=== PATIENT | female | born 1965 ===

== ENCOUNTER 2016-09-09 11:51 | Emergency (ER) | payer OTHER ==
[2016-09-09 11:56] VITALS: BP 129/88; PULSE 89; RESP 16; TEMP 98.1; O2SAT 99; BMI 32.1
--- NOTE | 2016-09-09 12:49 | ED PDOC ---
Upper Extremity Pain/Injury Time Seen by Provider: 09/09/16 12:38 Chief Complaint (Nursing): Upper Extremity Problem/Injury Chief Complaint (Provider): tendon injury History Per: Patient History/Exam Limitations: no limitations Additional Complaint(s): 50yo f in ED for eval of wrist injury sustained today at work while liting a heavy object -states she noted a pull to left wrist near thumb and immediate inflammation and pain. since the the pain has subsided and the inflammation decreased. pain only noted with certain movts. no hx of DM. no numbness or weakness. right hand dominant. Past Medical History Reviewed: Historical Data, Nursing Documentation, Vital Signs Vital Signs: Last Vital Signs Temp 98.1 F 09/09/16 11:55 Pulse 89 09/09/16 11:55 Resp 16 09/09/16 11:55 BP 129/88 09/09/16 11:55 Pulse Ox 99 09/09/16 11:55 - Medical History PMH: HTN - Family History Family History: States: No Known Family Hx - Allergies Allergies/Adverse Reactions: Allergies Allergy/AdvReac Type Severity Reaction Status Date / Time No Known Allergies Allergy Verified 09/09/16 11:55 Review of Systems ROS Statement: Except As Marked, All Systems Reviewed And Found Negative Musculoskeletal: Positive for: Hand Pain Physical Exam - Reviewed Nursing Documentation Reviewed: Yes Vital Signs Reviewed: Yes - Physical Exam Appears: Positive for: Well, Non-toxic, No Acute Distress Head Exam: Positive for: ATRAUMATIC, NORMAL INSPECTION, NORMOCEPHALIC Skin: Positive for: Normal Color, Warm, DRY Neck: Positive for: Painless ROM Extremity: Positive for: Other (left wrist: (-) Dequevrians test (-) phalens test ) Neurologic/Psych: Positive for: Alert, Oriented - ECG O2 Sat by Pulse Oximetry: 99 Medical Decision Making Medical Decision Making: no indication at this time for Xray-pt will need a Thumb spica splint and f/u with hand surgery. pt understands and agrees with plan. Disposition - Clinical Impression Clinical Impression: Tendonitis - Patient ED Disposition Is Patient to be Admitted: No Counseled Patient/Family Regarding: Diagnosis, Need For Followup - Disposition Referrals: Dragan Levine MD [Medical Doctor] - Disposition Time: 12:51 Condition: STABLE Instructions: Tendinitis (ED) Forms: [facility] ED School/Work Excuse
[2016-09-09] MEDS ORDERED: Naproxen 500 MG TAB PO STA (12:52)
== END 2016-09-09 13:00 | disposition home or self-care (01) ==
LOC: SUPCPDRO 11:51 → H.ER 11:51
DX: M77.9 Enthesopathy, unspecified (principal); I10 Essential (primary) hypertension

== ENCOUNTER 2017-06-17 04:23 | Emergency (ER) | payer OTHER ==
[2017-06-17 04:23] VITALS: BMI 32.1
[2017-06-17 04:50] VITALS: RESP 16; TEMP 97.8
[2017-06-17] MEDS ORDERED: HYDROmorphone 0.5 mg/0.5 ml ISec IVP STA (05:20)
[2017-06-17] MEDS ORDERED: Sodium Chloride 0.9% 500 ML IV STA (05:22)
--- NOTE | 2017-06-17 05:43 | ED PDOC ---
HPI: Abdomen Chief Complaint (Provider): Abdominal pain History Per: Patient History/Exam Limitations: no limitations Onset/Duration Of Symptoms: Hrs (4) Current Symptoms Are (Timing): Still Present Severity: Severe Pain Scale Rating Of: 10 Location Of Pain/Discomfort: Diffuse Quality Of Discomfort: Pressure Associated Symptoms: Nausea Exacerbating Factors: Supine Alleviating Factors: None Abnormal Vaginal Bleeding: No Last Menstral Period: 06/13/17 <Corinna Kay - Last Filed: 06/17/17 06:50> <Radha Knapp - Last Filed: 06/17/17 07:16> Time Seen by Provider: 06/17/17 04:47 Chief Complaint (Nursing): Abdominal Pain Additional Complaint(s): Bree Crews is a 51 yo F with PMH hypertension and depression, presents to the ED today, 06/17/17 with abdominal pain x4 hrs. Describes the pain as pressure that is all over her abdomen- radiating to the back and sides, 10/10, constant. Pain is exacerbated by lying down. She has had 3 similar episodes of pain in the last week, and all started when she laid down to go to sleep; she does not think there is association with food. Pain is accompanied by nausea, and she has vomited x1 after trying to drink water at home, could not keep it down. PMH: htn, depression Past Surg hx: none Social hx: smokes 1ppd for more than 20 yrs, denies alcohol or drug use LMP: 06/13/17 Allergies: none Medications: htn medication (pt unsure of name), and Paxil PMD: Dr. Jae Prakash (Corinna Kay) Supervising Attending Note - Supervising Attending Note The Documented history was done by the: Physician Occupational Health And Safety Adviser, Attending Physician The documented physical exam was done by the: Physician Occupational Health And Safety Adviser, Attending Physician - Attestation: I have personally seen and examined this patient.: Yes I have fully participated in the care of the patient.: Yes I have reviewed all pertinent clinical information: Yes <Radha Knapp - Last Filed: 06/17/17 07:16> Past Medical History - Medical History PMH: Depression, HTN - Surgical History Surgical History: No Surg Hx - Family History Family History: States: Unknown Family Hx - Social History SMOKER/PACKS PER DAY:: 1 Alcohol: None Drugs: Denies <Corinna Kay - Last Filed: 06/17/17 06:50> <Radha Knapp - Last Filed: 06/17/17 07:16> Vital Signs: Last Vital Signs Temp 97.8 F 06/17/17 04:47 Pulse 70 06/17/17 04:47 Resp 16 06/17/17 04:47 BP 158/86 H 06/17/17 04:47 Pulse Ox 99 06/17/17 06:52 - Allergies Allergies/Adverse Reactions: Allergies Allergy/AdvReac Type Severity Reaction Status Date / Time No Known Allergies Allergy Verified 09/09/16 11:55 Review of Systems Constitutional: Negative for: Fever, Chills Eyes: Negative for: Vision Change Cardiovascular: Negative for: Chest Pain, Palpitations Respiratory: Negative for: Cough Gastrointestinal: Positive for: Nausea, Vomiting, Abdominal Pain. Negative for : Diarrhea Genitourinary Female: Negative for: Dysuria, Frequency Neurological: Negative for: Weakness, Numbness <Corinna Kay - Last Filed: 06/17/17 06:50> Physical Exam - Physical Exam Appears: Positive for: In Acute Distress Skin: Positive for: Normal Color, Warm Eye Exam: Positive for: Normal appearance ENT: Positive for: Pharynx Is (clear). Negative for: Pharyngeal Erythema Cardiovascular/Chest: Positive for: Regular Rate, Rhythm. Negative for: Murmur Respiratory: Positive for: Normal Breath Sounds. Negative for: Respiratory Distress Gastrointestinal/Abdominal: Positive for: Bowel Sounds, Soft, Tenderness ( diffuse tenderness, possible +Tejeda's sign) Back: Positive for: Normal Inspection Extremity: Positive for: Normal ROM. Negative for: Calf Tenderness, Deformity Neurologic/Psych: Positive for: Alert, Oriented <Corinna Kay - Last Filed: 06/17/17 06:50> - Laboratory Results Result Diagrams: 06/17/17 05:47 06/17/17 05:47 - ECG O2 Sat by Pulse Oximetry: 99 <Corinna Kay - Last Filed: 06/17/17 06:50> - Laboratory Results Result Diagrams: 06/17/17 05:47 06/17/17 05:47 <Radha Knapp - Last Filed: 06/17/17 07:16> Medical Decision Making <Corinna Kay - Last Filed: 06/17/17 06:50> <Radha Knapp - Last Filed: 06/17/17 07:16> Medical Decision Makin CMP Lactic acid CBC PT/INR/PTT EKG Abd and Pelvis CT,IV and PO contrast Lipase Urine dip Urine preg Dilaudid 0.5 mg x1 500 ml NS @ 500 ml/hr Zofran 4mg IVP Re-eval after pain and antinausea medication 0635 Lipase wnl AST/ALT wnl EKG normal sinus rhythm pt states dilaudid made her dizzy; didn't alleviate pain toradol 15 IVP bentyl [address] pending (Corinna Kay) Disposition - Patient ED Disposition Is Patient to be Admitted: Transfer of Care - Disposition Disposition Time: 06:50 Patient Signed Over To: Radha Knapp Handoff Comments: Pt seen/discussed with Dr. Knapp <Corinna Kay - Last Filed: 06/17/17 06:50> - Disposition Disposition: Transfer of Care Patient Signed Over To: Bree Silva Handoff Comments: Pending ER workup, reassessment and final ER disposition <Radha Knapp - Last Filed: 06/17/17 07:16> - Clinical Impression Clinical Impression: Abdominal pain - Disposition Condition: FAIR
[2017-06-17 05:50] LABS: BASO # 0.1 K/uL (0.0-0.2); BASO % 0.8 % (0.0-2.0); EOS # 0.1 K/uL (0.0-0.7); EOS % 0.7 % (0.0-4.0); HEMOGLOBIN 14.4 g/dL (12.0-16.0); LYMPH # 3.6 K/uL (1.0-4.3); LYMPH % 29.5 % (20.0-40.0); MEAN CELL VOLUME 90.2 fl (81.0-99.0); MEAN CORPUSCULAR HEMOGLOBIN 29.3 pg (27.0-31.0); MEAN CORPUSCULAR HGB CONC 32.5 g/dL (33.0-37.0); MEAN PLATELET VOLUME 8.6 fl (7.2-11.7); MONO # 1.2 K/uL (0.0-0.8); MONO % 9.6 % (0.0-10.0); NEUT # 7.2 K/uL (1.8-7.0); NEUT % 59.4 % (50.0-75.0); NRBC % 0.1 % (0.0-0.0); RBC 4.92 Mil/uL (3.80-5.20); RED CELL DISTRIBUTION WIDTH 14.2 % (11.5-14.5); WHITE BLOOD COUNT 12.1 K/uL (4.8-10.8)
[2017-06-17] MEDS ORDERED: HYDROmorphone 0.5 mg/0.5 ml ISec ONE (05:51)
[2017-06-17] MEDS ORDERED: Iohexol 240 (50 ml) ONE (05:52)
[2017-06-17 06:08] LABS: ALB/GLOB RATIO 1.3 (1.0-2.1); ALBUMIN 4.2 g/dL (3.5-5.0); ALT/SGPT 30 U/L (9-52); AST/SGOT 22 U/L (14-36); BLOOD UREA NITROGEN 15 mg/dl (7-17); CALCIUM 9.2 mg/dL (8.4-10.2); GFR AFRICAN-AMERICAN > 60; GFR NON-AFRICAN AMERICAN > 60; LIPASE 106 U/L (23-300)
[2017-06-17 06:19] LABS: INR 0.9 (0.9-1.2); PARTIAL THROMBOPLASTIN TIME 29.9 Seconds (25.6-37.1)
[2017-06-17] MEDS ORDERED: Potassium Chloride 20 mEq ER Tab PO STA (08:18)
[2017-06-17] MEDS ORDERED: Potassium Chloride 20 mEq ER Tab PO ONE (09:08)
[2017-06-17] MEDS ORDERED: Iohexol 300 100 ML IJ ONE (09:34)
[2017-06-17] MEDS ORDERED: Sodium Chloride 0.9% 50 ML IV ONE (09:34)
--- NOTE | 2017-06-17 10:28 | CT ---
PROCEDURE: CT Abdomen and Pelvis with contrast HISTORY: abd pain COMPARISON: Abdomen and pelvis CT with contrast 04/02/2007. TECHNIQUE: Following oral and intravenous contrast administration, a CT examination of the abdomen and pelvis performed from the domes of the diaphragms to the symphysis pubis with reformatted datasets provided not only axial but also sagittal and coronal series. Contrast dose: Omnipaque 300, 95 cc Radiation dose: Total exam DLP = 822.68 mGy-cm. This CT exam was performed using one or more of the following dose reduction techniques: Automated exposure control, adjustment of the mA and/or kV according to patient size, and/or use of iterative reconstruction technique. FINDINGS: LOWER THORAX: Unremarkable. LIVER: Unremarkable. No gross lesion or ductal dilatation. GALLBLADDER AND BILE DUCTS: The gallbladder appears mildly distended with borderline mural thickening. The appearance is not significantly changed in the interval. No radiodense choledocholithiasis related. Extrahepatic biliary tree appears normal caliber as imaged. PANCREAS: Unremarkable. No gross lesion or ductal dilatation. SPLEEN: Unremarkable. ADRENALS: Unremarkable. No mass. KIDNEYS AND URETERS: Unremarkable. No hydronephrosis. No solid mass. VASCULATURE: Unremarkable. No aortic aneurysm. BOWEL: Stomach is collapsed. No bowel obstruction is appreciated throughout. The sigmoid colon is collapsed limiting evaluation of the wall. Element of limited sigmoid segmental colitis is not completely excluded. APPENDIX: Normal appendix. PERITONEUM: Unremarkable. No free fluid. No free air. LYMPH NODES: Unremarkable. No enlarged lymph nodes. BLADDER: Unremarkable. REPRODUCTIVE: Unremarkable. BONES: No acute fracture. OTHER FINDINGS: None. IMPRESSION: Collapsed sigmoid segment is identified limiting evaluation of the wall. An element segmental colitis is difficult to exclude involving the sigmoid colon with remaining large bowel grossly nonfocal in appearance. Otherwise, no additional potential acute findings are seen in the abdomen and pelvis.
--- NOTE | 2017-06-17 11:21 | ED PDOC ---
- Laboratory Results Result Diagrams: 06/17/17 05:47 06/17/17 05:47 - ECG O2 Sat by Pulse Oximetry: 98 (RA) Pulse Ox Interpretation: Normal - Progress Re-evaluation Time: 11:09 Condition: Improved Medical Decision Making Medical Decision Making: Time: 7:00 Patient is endorsed to me by Dr. Radha Knapp at this time. Pending CT scan and reevaluation. Time: 10:26 CT ABDOMEN AND PELVIS: FINDINGS: LOWER THORAX: Unremarkable. LIVER: Unremarkable. No gross lesion or ductal dilatation. GALLBLADDER AND BILE DUCTS: The gallbladder appears mildly distended with borderline mural thickening. The appearance is not significantly changed in the interval. No radiodense choledocholithiasis related. Extrahepatic biliary tree appears normal caliber as imaged. PANCREAS: Unremarkable. No gross lesion or ductal dilatation. SPLEEN: Unremarkable. ADRENALS: Unremarkable. No mass. KIDNEYS AND URETERS: Unremarkable. No hydronephrosis. No solid mass. VASCULATURE: Unremarkable. No aortic aneurysm. BOWEL: Stomach is collapsed. No bowel obstruction is appreciated throughout. The sigmoid colon is collapsed limiting evaluation of the wall. Element of limited sigmoid segmental colitis is not completely excluded. APPENDIX: Normal appendix. PERITONEUM: Unremarkable. No free fluid. No free air. LYMPH NODES: Unremarkable. No enlarged lymph nodes. BLADDER: Unremarkable. REPRODUCTIVE: Unremarkable. BONES: No acute fracture. OTHER FINDINGS: None. IMPRESSION: Collapsed sigmoid segment is identified limiting evaluation of the wall. An element segmental colitis is difficult to exclude involving the sigmoid colon with remaining large bowel grossly nonfocal in appearance. Otherwise, no additional potential acute findings are seen in the abdomen and pelvis. Time: 11:09 On reevaluation, patient reports she feels better. Abdomen reexamined with no tenderness or distension. Patient had one episode of non-bloody diarrhea in the ER. Stable for discharge home. Patient provided with prescriptions for Bentyl and Cipro, and advised to follow up with PMD in 2-3 days. Scribe Attestation: Documented by Delicia Patel, acting as a scribe for Bree Silva MD Provider Scribe Attestation: All medical record entries made by the Scribe were at my direction and personally dictated by me. I have reviewed the chart and agree that the record accurately reflects my personal performance of the history, physical exam, medical decision making, and the department course for this patient. I have also personally directed, reviewed, and agree with the discharge instructions and disposition Disposition Counseled Patient/Family Regarding: Studies Performed, Diagnosis, Need For Followup, Rx Given - Clinical Impression Clinical Impression: Abdominal pain, Colitis - POA Present On Arrival: None - Disposition Disposition: Routine/Home Disposition Time: 11:20 Condition: FAIR Additional Instructions: FOLLOW-UP WITH PMD WITHIN 2 DAYS FOR REEVALUATION. Prescriptions: Ciprofloxacin [Cipro] 500 mg PO BID #9 tab Dicyclomine [Bentyl] 20 mg PO QID PRN #10 tab PRN Reason: Pain, Moderate (4-7) Instructions: Colitis (ED) Forms: [facility] (Italian)
[2017-06-17 12:27] VITALS: BP 123/84; PULSE 72; O2SAT 100
--- NOTE | 2017-06-17 18:24 | CARD ---
APPROVED REPORT EKG Measurement Heart [id number] ND [id number] <Conclusion> Normal sinus rhythm Normal ECG
== END 2017-06-17 12:24 | disposition home or self-care (01) ==
LOC: H.ER 04:23
DX: K52.9 Noninfective gastroenteritis and colitis, unspecified (principal); F32.9 Major depressive disorder, single episode, unspecified; I10 Essential (primary) hypertension
CPT/HCPCS: 74177; 80053; 81025; 83605; 83690; 85025; 85610; 85730; 93005; 96361; 96374; 96375; 99284; J1170; J1885; J2405; J7040; Q9967

== ENCOUNTER 2017-07-11 00:24 | Inpatient (IN) | payer OTHER ==
[2017-07-11 00:24] VITALS: BMI 32.1
[2017-07-11] MEDS ORDERED: Sodium Chloride 0.9% 1,000 ML IV STA (01:44)
[2017-07-11] MEDS ORDERED: Lactated Ringer's 1,000 ML IV SCH ×2 (01:45→05:00)
[2017-07-11 02:09] LABS: BASO # 0.1 K/uL (0.0-0.2); BASO % 0.6 % (0.0-2.0); EOS # 0.1 K/uL (0.0-0.7); HEMOGLOBIN 14.6 g/dL (12.0-16.0); LYMPH # 1.7 K/uL (1.0-4.3); LYMPH % 19.9 % (20.0-40.0); MEAN CELL VOLUME 90.6 fl (81.0-99.0); MEAN CORPUSCULAR HEMOGLOBIN 30.2 pg (27.0-31.0); MEAN CORPUSCULAR HGB CONC 33.3 g/dL (33.0-37.0); MEAN PLATELET VOLUME 8.8 fl (7.2-11.7); MONO # 0.7 K/uL (0.0-0.8); MONO % 8.2 % (0.0-10.0); NEUT # 5.9 K/uL (1.8-7.0); NEUT % 70.3 % (50.0-75.0); RBC 4.85 Mil/uL (3.80-5.20); RED CELL DISTRIBUTION WIDTH 14.4 % (11.5-14.5); WHITE BLOOD COUNT 8.4 K/uL (4.8-10.8)
[2017-07-11 02:26] LABS: ALB/GLOB RATIO 1.4 (1.0-2.1); ALBUMIN 4.2 g/dL (3.5-5.0); ALT/SGPT 169 U/L (9-52); AST/SGOT 166 U/L (14-36); BLOOD UREA NITROGEN 9 mg/dl (7-17); CALCIUM 9.4 mg/dL (8.4-10.2); GFR AFRICAN-AMERICAN > 60; GFR NON-AFRICAN AMERICAN > 60; LIPASE 42 U/L (23-300)
[2017-07-11] MEDS ORDERED: Iohexol 240 (50 ml) PO ONE (02:35)
[2017-07-11] MEDS ORDERED: Morphine 4 MG/ML VIAL IVP STA ×2 (02:35→07:34)
[2017-07-11] MEDS ORDERED: Morphine 4 MG/ML VIAL ONE ×3 (02:36→07:27)
--- NOTE | 2017-07-11 03:02 | ED PDOC ---
HPI: Abdomen Time Seen by Provider: 07/11/17 00:56 Chief Complaint (Nursing): Abdominal Pain Chief Complaint (Provider): Abdominal Pain History Per: Patient History/Exam Limitations: no limitations Onset/Duration Of Symptoms: Days (21 days ago) Current Symptoms Are (Timing): Still Present Additional Complaint(s): 51 yo female with a history of recent cholecystectomy, 21 days ago, hypertension , and depression, presents to the ED complaining of abdominal pain, onset of 21 days ago. Patient reports that the pain has been constant since the surgery, and today she experienced 2 episodes of vomiting. She states that the pain is somewhat of an acidic sensation and resides in the middle of the abdomen and radiates upward towards the chest. She denies any urinary symptoms and also states that she has been unable to take her prescribed percocet because of the vomiting. Past Medical History Reviewed: Historical Data, Nursing Documentation, Vital Signs Vital Signs: Last Vital Signs Temp 98.1 F 07/11/17 04:52 Pulse 75 07/11/17 04:52 Resp 16 07/11/17 04:52 BP 108/63 07/11/17 04:52 Pulse Ox 95 07/11/17 04:52 - Medical History PMH: Depression, HTN - Surgical History Surgical History: Cholecystectomy - Family History Family History: States: Unknown Family Hx - Social History Current smoker - smoking cessation education provided: Yes (heavy) Alcohol: None Drugs: Denies - Home Medications Home Medications: Ambulatory Orders Medication Instructions Recorded Ciprofloxacin [Cipro] 500 mg PO BID #9 tab 06/17/17 Dicyclomine [Bentyl] 20 mg PO QID PRN #10 tab 06/17/17 - Allergies Allergies/Adverse Reactions: Allergies Allergy/AdvReac Type Severity Reaction Status Date / Time No Known Allergies Allergy Verified 07/11/17 00:25 Review of Systems ROS Statement: Except As Marked, All Systems Reviewed And Found Negative Gastrointestinal: Positive for: Vomiting, Abdominal Pain (in the middle radiating upward towards chest) Genitourinary Female: Negative for: Dysuria, Frequency, Incontinence, Hematuria Physical Exam - Reviewed Nursing Documentation Reviewed: Yes Vital Signs Reviewed: Yes - Physical Exam Appears: Positive for: Well, Non-toxic, No Acute Distress Head Exam: Positive for: ATRAUMATIC, NORMAL INSPECTION, NORMOCEPHALIC Skin: Positive for: Normal Color, Warm, DRY Eye Exam: Positive for: EOMI, Normal appearance, PERRL ENT: Positive for: Normal ENT Inspection Neck: Positive for: Normal, Painless ROM Cardiovascular/Chest: Positive for: Regular Rate, Rhythm. Negative for: Murmur Respiratory: Positive for: Normal Breath Sounds. Negative for: Respiratory Distress Gastrointestinal/Abdominal: Positive for: Soft, Tenderness (epigastric tenderness, surgical sights look clean and well healed) Back: Positive for: Normal Inspection Extremity: Positive for: Normal ROM. Negative for: Pedal Edema, Deformity Neurologic/Psych: Positive for: Alert, Oriented. Negative for: Motor/Sensory Deficits - Laboratory Results Result Diagrams: 07/11/17 02:00 07/11/17 02:00 - ECG O2 Sat by Pulse Oximetry: 98 (RA) Pulse Ox Interpretation: Normal Medical Decision Making Medical Decision Making: Time: --01:43 Impression: --Post operative pain vs. Gastritis Plan: --ECG --Pepcid 20 mg IVP --Iohexol 50 ml PO --Lactated Ringer IV --Lidocaine 2% Viscous 15ml PO --Morphine 4mg IVP --IV fluids --Zofran 4mg IVP --Urinalysis Reassess Pending CT, will endorse to Dr. Silva. Scribe Attestation: Documented by Agustin Webster acting as a scribe for Eric Alarcon MD. Provider Attestation: All medical record entries made by the Scribe were at my direction and personally dictated by me. I have reviewed the chart and agree that the record accurately reflects my personal performance of the history, physical exam, medical decision making, and the department course for this patient. I have also personally directed, reviewed, and agree with the discharge instructions and disposition. Disposition - Clinical Impression Clinical Impression: Abdominal pain - Patient ED Disposition Is Patient to be Admitted: Transfer of Care - Disposition Disposition: Transfer of Care Disposition Time: 07:00 Condition: STABLE Forms: [facility] (Guamanian) Patient Signed Over To: Bree Silva Handoff Comments: pending CT and re-eval
[2017-07-11] MEDS ORDERED: Sodium Chloride 0.9% 50 ML IV ONE (06:02)
[2017-07-11] MEDS ORDERED: Iohexol 300 100 ML IJ ONE (06:02)
[2017-07-11 06:37] LABS: PH,URINE 5.5 (5.0-8.0); URINE BILIRUBIN LARGE (NEGATIVE); URINE BLOOD NEGATIVE (NEGATIVE); URINE CLARITY Turbid (Clear); URINE COLOR DARK BROWN (YELLOW); URINE GLUCOSE (UA) 250 mg/dL (Normal); URINE PROTEIN 100 mg/dL (NEGATIVE)
[2017-07-11 06:38] LABS: URINE BACTERIA MOD (<OCC); URINE HYALINE CAST 0 - 2 /hpf (0-2); URINE LEUKOCYTE ESTERASE NEGATIVE Leu/uL (Negative); URINE NITRATE POSITIVE (NEGATIVE)
--- NOTE | 2017-07-11 06:49 | CT ---
EXAM: CT Abdomen and Pelvis With Intravenous Contrast CLINICAL HISTORY: 51 years old, female; Pain; Abdominal pain; Generalized; Prior surgery; Surgery date: <1 month; Surgery type: Gall bladder; Additional info: S/P faraz 2 weeks ago, abd pain TECHNIQUE: Axial computed tomography images of the abdomen and pelvis with intravenous contrast. All CT scans at this facility use one or more dose reduction techniques, viz.: automated exposure control; ma/kV adjustment per patient size (including targeted exams where dose is matched to indication; i.e. head); or iterative reconstruction technique. Coronal and sagittal reformatted images were created and reviewed. CONTRAST: 90 mL of [id number] administered intravenously. COMPARISON: 07/07/2017 FINDINGS: Lower thorax: 0.3 cm RIGHT lower lobe nodule, stable. ABDOMEN: Liver: Fatty infiltration. Gallbladder and bile ducts: Cholecystectomy. Minimal stranding within gallbladder fossa. 0.6 x 1.2 x 2.2 cm peripheral hypodensity within gallbladder fossa, similar to previous examination. Mild prominence of common bile duct. Apparent minimal mural enhancement of common bile duct. Pancreas: No ductal dilation. No mass. Spleen: No splenomegaly. Adrenals: No mass. Kidneys and ureters: No mass. No hydronephrosis. Stomach and bowel: No definite mural thickening. No obstruction. Appendix: Normal caliber. No inflammation. PELVIS: Bladder: Unremarkable. Reproductive: 1.1 x 1.0 x 1.1 cm hypodensity within right ovary, decreased from previous examination. ABDOMEN and PELVIS: Intraperitoneal space: No significant fluid collection. No free air. Bones/joints: Mild degenerative changes of spine. No acute fracture. Soft tissues: Unremarkable. Vasculature: Minimal atherosclerotic disease of iliac arteries. No aneurysm. Lymph nodes: Few subcentimeter short axis lymph nodes within delroy hepatis. IMPRESSION: 1. Small collection within gallbladder fossa, grossly stable. DDX: Seroma, hematoma, or abscess. 2. Mild prominence of common bile duct with apparent minimal mural enhancement. Cannot entirely exclude cholangitis. Clinical correlation is needed. 3. Incidental/non-acute findings are described above.
--- NOTE | 2017-07-11 07:26 | ED PDOC ---
- Laboratory Results Result Diagrams: 07/11/17 02:00 07/11/17 02:00 - ECG O2 Sat by Pulse Oximetry: 98 (RA) Medical Decision Making Medical Decision Makin:00 --Patient was transferred to pa by Dr. Alarcon, pending ultrasound and reevaluation. 11:01 Gallbladder Ultrasound FINDINGS: LIVER: Liver exhibits normal size measuring approximately 12.6 cm in CC dimension. Liver demonstrates smooth contour but slight homogeneous decreased echogenicity - nonspecific. No obvious hepatic masses or collections seen on this noncontrast study. No gross intrahepatic biliary ductal dilatation. . Mild hepato pedal flow GALLBLADDER: Cholecystectomy. Note that technologist indicates mild tenderness while scanning COMMON BILE DUCT: There is dilatation of the common bile duct measuring approximately 9.5 mm. No definitive evidence of choledocholithiasis. PANCREAS: Pancreas is not visualized due to overlying body habitus and bowel gas RIGHT KIDNEY: Right kidney measures approximately 11.2 x 5.6 x 4.6 cm in length. Normal echogenicity. No calculus, mass, or hydronephrosis. AORTA: No aneurysmal dilatation. IVC: Unremarkable. OTHER FINDINGS: None . IMPRESSION: Status post cholecystectomy. There is dilatation of the common bile duct. No definitive evidence of intraluminal gallbladder. Note technologist notation indicates mild tenderness while scanning Mild homogeneous decreased hepatic echogenicity nonspecific Disposition - Clinical Impression Clinical Impression: Abdominal pain - Disposition Referrals: Jaya Prakash MD [Primary Care Provider] - Condition: STABLE Forms: [employer] (Hungarian)
[2017-07-11 07:36] LABS: BILIRUBIN,DIRECT 4.4 mg/ml (0.0-0.4)
--- NOTE | 2017-07-11 10:52 | CARD ---
APPROVED REPORT EKG Measurement Heart [id number] [place] 128P56 [id number] <Conclusion> Normal sinus rhythm Low voltage QRS Cannot rule out Anterior infarct, age undetermined-not diagnostic Abnormal ECG
--- NOTE | 2017-07-11 11:05 | US ---
HISTORY: Abdominal pain, elevated LFTs COMPARISON: None. TECHNIQUE: Sonographic evaluation of the right upper quadrant of the abdomen. FINDINGS: LIVER: Liver exhibits normal size measuring approximately 12.6 cm in CC dimension. Liver demonstrates smooth contour but slight homogeneous decreased echogenicity - nonspecific. No obvious hepatic masses or collections seen on this noncontrast study. No gross intrahepatic biliary ductal dilatation. . Mild hepato pedal flow GALLBLADDER: Cholecystectomy. Note that technologist indicates mild tenderness while scanning COMMON BILE DUCT: There is dilatation of the common bile duct measuring approximately 9.5 mm. No definitive evidence of choledocholithiasis. PANCREAS: Pancreas is not visualized due to overlying body habitus and bowel gas RIGHT KIDNEY: Right kidney measures approximately 11.2 x 5.6 x 4.6 cm in length. Normal echogenicity. No calculus, mass, or hydronephrosis. AORTA: No aneurysmal dilatation. IVC: Unremarkable. OTHER FINDINGS: None . IMPRESSION: Status post cholecystectomy. There is dilatation of the common bile duct. No definitive evidence of intraluminal gallbladder. Note technologist notation indicates mild tenderness while scanning Mild homogeneous decreased hepatic echogenicity nonspecific
--- NOTE | 2017-07-11 15:42 | CP.PCM.CON ---
History of Present Illness - History of Present Illness History of Present Illness: General Surgery Dr. Maddox 28 y/o F w/ PMHx of HTN and cholelithaisis s/p cholecystectomy presents to the ED c/o abd pain, N/V. Pt reports having her gallbladder removed on 06/22/17 in [place], [place]. Since surgery, pt reports repeated visits to the ED for continued abd pain. Last visit to [facility] ED was on 07/07/17, at which time pt was found to have a small fluid collection in the gallbladder fossa. Pt was started on PO Abx and PPI and discharged home from the ED. Pt returns to the ED today w/ the same abd pain, now associated w/ N/V overnight. Pain made worse w/ PO intake thus making the pt afraid to eat. Pt reports taking all her medication as prescribed w/ no change in symptoms. Pt denies F/C, D/C. CT performed in the ED shows unchanged, small fluid collection in GB fossa, likely biloma, and dilated CBD Abd US revealed dilated CBD of 9.5cm. PMHx: see above, depression Meds: reviewed in chart NKDA PSHx: lap faraz SHx: denies tobacco, EtOH, drug use FHx: noncontributory Review of Systems - Review of Systems All systems: reviewed and no additional remarkable complaints except (see HPI) Past Patient History - Past Social History Alcohol: None Drugs: Denies - CARDIAC Hx Hypertension: Yes - PSYCHIATRIC Hx Depression: Yes - SURGICAL HISTORY Hx Cholecystectomy: Yes - ANESTHESIA Hx Anesthesia: No Meds Allergies/Adverse Reactions: Allergies Allergy/AdvReac Type Severity Reaction Status Date / Time No Known Allergies Allergy Verified 07/11/17 00:25 - Medications Medications: Current Medications Dextrose/Sodium Chloride (Dextrose 5%/0.9% Ns 1000 Ml) 1,000 mls @ 125 mls/hr IV .Q8H RENE Stop: 07/12/17 14:56 Physical Exam - Constitutional Appears: Non-toxic, No Acute Distress - Head Exam Head Exam: NORMAL INSPECTION - Eye Exam Eye Exam: Normal appearance. absent: Scleral icterus - ENT Exam ENT Exam: Mucous Membranes Moist - Respiratory Exam Respiratory Exam: NORMAL BREATHING PATTERN. absent: Accessory Muscle Use, Respiratory Distress - GI/Abdominal Exam GI & Abdominal Exam: Distended, Guarding, Rebound, Soft, Tenderness (minimal TTP RUQ/epigastric) - Extremities Exam Extremities exam: Positive for: normal inspection - Neurological Exam Neurological exam: Alert, Oriented x3 - Psychiatric Exam Psychiatric exam: Normal Affect, Normal Mood - Skin Skin Exam: Dry, Intact, Normal Color, Warm Results - Vital Signs Recent Vital Signs: Last Vital Signs Temp 98.6 F 07/11/17 07:45 Pulse 72 07/11/17 07:45 Resp 16 07/11/17 07:45 BP 112/68 07/11/17 07:45 Pulse Ox 98 07/11/17 11:06 - Labs Result Diagrams: 07/11/17 02:00 07/11/17 02:00 Labs: Laboratory Results - last 24 hr 07/11/17 07/11/17 07/11/17 02:00 02:00 04:28 WBC 8.4 RBC 4.85 Hgb 14.6 Hct 43.9 MCV 90.6 MCH 30.2 MCHC 33.3 RDW 14.4 Plt Count 272 MPV 8.8 Neut % (Auto) 70.3 Lymph % (Auto) 19.9 L [place] % (Auto) 8.2 Eos % (Auto) 1.0 Baso % (Auto) 0.6 Neut # (Auto) 5.9 Lymph # (Auto) 1.7 [place] # (Auto) 0.7 Eos # (Auto) 0.1 Baso # (Auto) 0.1 Sodium 137 Potassium 3.9 Chloride 100 Carbon Dioxide 24 Anion Gap 17 BUN 9 Creatinine 0.7 Est GFR ( Amer) > 60 Est GFR (Non-Af Amer) > 60 Random Glucose 111 H Calcium 9.4 Total Bilirubin 5.4 H Direct Bilirubin 4.4 H AST 166 H D ALT 169 H D Alkaline Phosphatase 204 H D Total Protein 7.3 Albumin 4.2 Globulin 3.1 Albumin/Globulin Ratio 1.4 Lipase 42 Urine Color Dark brown Urine Clarity Turbid Urine pH 5.5 Ur Specific [place] >= 1.030 Urine Protein 100 Urine Glucose (UA) 250 Urine Ketones 40 Urine Blood Negative Urine Nitrate Positive H Urine Bilirubin Large Urine Urobilinogen 1.0 Ur Leukocyte Esterase Negative Urine RBC (Auto) 3 Urine Microscopic WBC 10 H Urine Bacteria Mod H Hyaline Casts 0 - 2 - Imaging and Cardiology CT scan - abdomen Status: Image reviewed by me, Report reviewed by me US - abdomen Status: Image reviewed by me, Report reviewed by me HIDA Status: Pending Assessment & Plan - Assessment and Plan (Free Text) Assessment: 51 y/o F s/p lap faraz w/ continued RUQ abd pain - f/u HIDA scan for possible bile leak vs CBD injury - elevated T. Bili and LFTs --> trend - NPO, IVF - pain management - GI consult - possible MRCP/ERCP pending results of HIDA Pt discussed w/ Dr. Tan Cameron DO PGY2 - Date & Time Date: 07/11/17 Time: 08:00
[2017-07-11] MEDS: Dextrose 5%/0.9% NS 1,000 ML IV SCH (16:05)
--- NOTE | 2017-07-11 16:23 | CP.PCM.CON ---
Addendum entered and electronically signed by Wendi Martinez DO 07/11/17 20:55: HIDA scan negative for biliary leak. Pt will be transferred to [facility] for EUS and possible ERCP. Original Note: <Wendi Martinez - Last Filed: 07/11/17 20:54> History of Present Illness - History of Present Illness History of Present Illness: GI Fellow PGY 4 Consult Note This is a 51yF with PMHx of HTN and cholelithaisis s/p cholecystectomy 21days ago presenting to the ED with complaints of abdominal pain, N/V. Pt reports having her gallbladder removed on 06/22/17. Pt reports since surgery she came to [facility] ED on 06/17/17, at which time pt was found to have a small fluid collection in the gallbladder fossa. Pt was discharged home from the ED on po cipro and bentyl. Pt returns to the ED today with the same abd pain, associated with N/V overnight. Pain is worse with po intake. Pt denies F/C, D/C. CT performed in the ED shows small fluid collection in GB fossa. Abd US revealed dilated CBD of 9.5cm. Pt has elevated LFTs with no fever or WBC. ROS: A 12pt ROS was negative except as above. PMHx: As stated in HPI PSHx: lap faraz 06/22/17 SHx: denies tobacco, EtOH, drug use FHx: noncontributory Past Patient History - Past Social History Alcohol: None Drugs: Denies - CARDIAC Hx Hypertension: Yes - PSYCHIATRIC Hx Depression: Yes - SURGICAL HISTORY Hx Cholecystectomy: Yes - ANESTHESIA Hx Anesthesia: No Meds Allergies/Adverse Reactions: Allergies Allergy/AdvReac Type Severity Reaction Status Date / Time No Known Allergies Allergy Verified 07/11/17 00:25 - Medications Medications: Current Medications Dextrose/Sodium Chloride (Dextrose 5%/0.9% Ns 1000 Ml) 1,000 mls @ 125 mls/hr IV .Q8H RENE Stop: 07/12/17 14:56 Last Admin: 07/11/17 16:05 Dose: 125 mls/hr Ceftriaxone Sodium 1 gm/ (Sodium Chloride) 100 mls @ 100 mls/hr IV STAT STA PRN Reason: Protocol Stop: 07/11/17 16:38 Physical Exam - Constitutional Appears: Non-toxic, No Acute Distress - Head Exam Head Exam: ATRAUMATIC, NORMAL INSPECTION, NORMOCEPHALIC - Eye Exam Eye Exam: EOMI, Normal appearance, PERRL Pupil Exam: PERRL - ENT Exam ENT Exam: Mucous Membranes Moist - Respiratory Exam Respiratory Exam: Clear to Auscultation Bilateral, NORMAL BREATHING PATTERN - Cardiovascular Exam Cardiovascular Exam: REGULAR RHYTHM - GI/Abdominal Exam GI & Abdominal Exam: Normal Bowel Sounds, Soft, Tenderness. absent: Distended, Guarding - Extremities Exam Extremities exam: Positive for: normal inspection - Neurological Exam Neurological exam: Alert, Oriented x3 - Psychiatric Exam Psychiatric exam: Normal Affect, Normal Mood - Skin Skin Exam: Dry, Intact, Normal Color, Warm Results - Vital Signs Recent Vital Signs: Last Vital Signs Temp 98.6 F 07/11/17 07:45 Pulse 72 07/11/17 07:45 Resp 16 07/11/17 07:45 BP 112/68 07/11/17 07:45 Pulse Ox 98 07/11/17 11:06 - Labs Result Diagrams: 07/11/17 02:00 07/11/17 02:00 Labs: Laboratory Results - last 24 hr 07/11/17 07/11/17 07/11/17 02:00 02:00 04:28 WBC 8.4 RBC 4.85 Hgb 14.6 Hct 43.9 MCV 90.6 MCH 30.2 MCHC 33.3 RDW 14.4 Plt Count 272 MPV 8.8 Neut % (Auto) 70.3 Lymph % (Auto) 19.9 L [place] % (Auto) 8.2 Eos % (Auto) 1.0 Baso % (Auto) 0.6 Neut # (Auto) 5.9 Lymph # (Auto) 1.7 [place] # (Auto) 0.7 Eos # (Auto) 0.1 Baso # (Auto) 0.1 Sodium 137 Potassium 3.9 Chloride 100 Carbon Dioxide 24 Anion Gap 17 BUN 9 Creatinine 0.7 Est GFR ( Amer) > 60 Est GFR (Non-Af Amer) > 60 Random Glucose 111 H Calcium 9.4 Total Bilirubin 5.4 H Direct Bilirubin 4.4 H AST 166 H D ALT 169 H D Alkaline Phosphatase 204 H D Total Protein 7.3 Albumin 4.2 Globulin 3.1 Albumin/Globulin Ratio 1.4 Lipase 42 Urine Color Dark brown Urine Clarity Turbid Urine pH 5.5 Ur Specific [place] >= 1.030 Urine Protein 100 Urine Glucose (UA) 250 Urine Ketones 40 Urine Blood Negative Urine Nitrate Positive H Urine Bilirubin Large Urine Urobilinogen 1.0 Ur Leukocyte Esterase Negative Urine RBC (Auto) 3 Urine Microscopic WBC 10 H Urine Bacteria Mod H Hyaline Casts 0 - 2 Assessment & Plan - Assessment and Plan (Free Text) Assessment: This is a 51yF s/p cholecystectomy presenting with abdominal pain, N/v. 1. Abdominal pain, N/V-s/p cholecystectomy with fluid collection in gallbladder fossa concerning for bile leak 2. Elevated LFTs 3. UTI Plan: -Continue supportive care with anti-emetics and pain control -CT imaging and US reviewed, concern for biliary leak with elevated LFTs and fluid collection with recent cholecystectomy -Recommend HIDA scan and may need ERCP -NPO -IV abx -Monitor labs in am -Will continue to follow closely <Benito Aponte - Last Filed: 07/11/17 22:51> Meds - Medications Medications: Current Medications Ceftriaxone Sodium (Rocephin) 1 gm IM DAILY RENE PRN Reason: Protocol Hydrochlorothiazide (Microzide) 12.5 mg PO DAILY RENE Hydromorphone HCl (Dilaudid) 1 mg IVP Q4 PRN PRN Reason: Pain, moderate (4-7) Last Admin: 07/11/17 21:29 Dose: 1 mg Dextrose/Sodium Chloride (Dextrose 5%/0.9% Ns 1000 Ml) 1,000 mls @ 125 mls/hr IV .Q8H RENE Stop: 07/12/17 14:56 Last Admin: 07/11/17 16:05 Dose: 125 mls/hr Lisinopril (Zestril) 10 mg PO DAILY RENE Pantoprazole Sodium (Protonix Ec Tab) 40 mg PO DAILY RENE Paroxetine HCl (Paxil) 20 mg PO HS RENE Trazodone HCl (Desyrel) 100 mg PO HS PRN PRN Reason: Insomnia Results - Vital Signs Recent Vital Signs: Last Vital Signs Temp 98.3 F 07/11/17 17:52 Pulse 84 07/11/17 17:52 Resp 18 07/11/17 17:52 BP 110/70 07/11/17 17:52 Pulse Ox 98 07/11/17 17:52 - Labs Result Diagrams: 07/11/17 02:00 07/11/17 02:00 Labs: Laboratory Results - last 24 hr 07/11/17 07/11/17 07/11/17 02:00 02:00 04:28 WBC 8.4 RBC 4.85 Hgb 14.6 Hct 43.9 MCV 90.6 MCH 30.2 MCHC 33.3 RDW 14.4 Plt Count 272 MPV 8.8 Neut % (Auto) 70.3 Lymph % (Auto) 19.9 L [place] % (Auto) 8.2 Eos % (Auto) 1.0 Baso % (Auto) 0.6 Neut # (Auto) 5.9 Lymph # (Auto) 1.7 [place] # (Auto) 0.7 Eos # (Auto) 0.1 Baso # (Auto) 0.1 Sodium 137 Potassium 3.9 Chloride 100 Carbon Dioxide 24 Anion Gap 17 BUN 9 Creatinine 0.7 Est GFR ( Amer) > 60 Est GFR (Non-Af Amer) > 60 Random Glucose 111 H Calcium 9.4 Total Bilirubin 5.4 H Direct Bilirubin 4.4 H AST 166 H D ALT 169 H D Alkaline Phosphatase 204 H D Total Protein 7.3 Albumin 4.2 Globulin 3.1 Albumin/Globulin Ratio 1.4 Lipase 42 Urine Color Dark brown Urine Clarity Turbid Urine pH 5.5 Ur Specific [place] >= 1.030 Urine Protein 100 Urine Glucose (UA) 250 Urine Ketones 40 Urine Blood Negative Urine Nitrate Positive H Urine Bilirubin Large Urine Urobilinogen 1.0 Ur Leukocyte Esterase Negative Urine RBC (Auto) 3 Urine Microscopic WBC 10 H Urine Bacteria Mod H Hyaline Casts 0 - 2 Attending/Attestation - Attestation I have personally seen and examined this patient.: Yes I have fully participated in the care of the patient.: Yes I have reviewed all pertinent clinical information: Yes Notes (Text): 07/11/17 22:49 Patient seen earlier in the day at bedside. This is a 51 yr old F s/p cholecystectomy 2 weeks ago presenting with abdominal pain, nausea and vomiting and elevated LFT. CT scan reveals dilated CBD. Likely Bile duct stone. Gall bladder fossa with fluid collection. HIDA negative for bile leak - EUS with ERCP at [facility] in am -Continue supportive care with anti-emetics and pain control -NPO -Monitor labs in am -Will continue to follow closely
[2017-07-11] MEDS ORDERED: cefTRIAXone (Rocephin) 1 gm Inj ONE (16:24)
--- NOTE | 2017-07-11 16:58 | NM ---
PROCEDURE: Nuclear Medicine Hepatobiliary Scan HISTORY: Elevated LFTs, distedended CBD, s/p cholecystectom June 22, 2017 COMPARISON: July 11, 2017. Abdominal ultrasound TECHNIQUE: 5.6 mCi of technetium 99m Mebrofenin was administered intravenously. Planar images of the abdomen were obtained at 5 min intervals to 60 mins. Delayed images were also obtained. FINDINGS: LIVER: Timely and homogenous uptake. COMMON BILE DUCT: identified at 20 mins. Prior cholecystectomy. No evidence of bile leak. . SMALL BOWEL: Identified at 20 mins. IMPRESSION: Status post cholecystectomy a with no evidence of bile leak. Prompt visualization of the common duct and small bowel with radionuclide.
[2017-07-11] MEDS ORDERED: Pneumococcal 23-Valent Vaccine IM ONE (18:49)
[2017-07-12] MEDS: Dextrose 5%/0.9% NS 1,000 ML IV SCH (05:56)
[2017-07-12 06:36] LABS: BASO # 0.1 K/uL (0.0-0.2); EOS # 0.1 K/uL (0.0-0.7); EOS % 1.5 % (0.0-4.0); HEMOGLOBIN 13.2 g/dL (12.0-16.0); LYMPH # 2.4 K/uL (1.0-4.3); LYMPH % 42.4 % (20.0-40.0); MEAN CELL VOLUME 91.2 fl (81.0-99.0); MEAN CORPUSCULAR HEMOGLOBIN 29.8 pg (27.0-31.0); MEAN CORPUSCULAR HGB CONC 32.7 g/dL (33.0-37.0); MEAN PLATELET VOLUME 8.6 fl (7.2-11.7); MONO # 0.7 K/uL (0.0-0.8); MONO % 12.4 % (0.0-10.0); NEUT # 2.4 K/uL (1.8-7.0); NEUT % 42.7 % (50.0-75.0); NRBC % 0.1 % (0.0-0.0); RBC 4.41 Mil/uL (3.80-5.20); RED CELL DISTRIBUTION WIDTH 14.5 % (11.5-14.5); WHITE BLOOD COUNT 5.7 K/uL (4.8-10.8)
[2017-07-12 07:05] LABS: PROTHROMBIN TIME 11.6 Seconds (9.8-13.1)
--- NOTE | 2017-07-12 07:42 | CP.PCM.PN ---
Subjective - Date & Time of Evaluation Date of Evaluation: 07/12/17 Time of Evaluation: 07:40 - Subjective Subjective: Gen Surg: Dr Maddox Pt S&E. Reports continued epigastric pain, specifically after eating. Denies any nausea, vomiting, fevers or chills. Pt is scheduled for transfer to [facility] for EUS possible ERCP. Objective - Vital Signs/Intake and Output Vital Signs (last 24 hours): Temp Pulse Resp BP Pulse Ox 97.3 F L 66 20 95/68 L 95 07/11/17 23:58 07/11/17 23:58 07/11/17 23:58 07/11/17 23:58 07/11/17 23:58 - Medications Medications: Current Medications Ceftriaxone Sodium (Rocephin) 1 gm IM DAILY RENE PRN Reason: Protocol Hydrochlorothiazide (Microzide) 12.5 mg PO DAILY [facility] Hydromorphone HCl (Dilaudid) 1 mg IVP Q4 PRN PRN Reason: Pain, moderate (4-7) Last Admin: 07/12/17 05:56 Dose: 1 mg Dextrose/Sodium Chloride (Dextrose 5%/0.9% Ns 1000 Ml) 1,000 mls @ 125 mls/hr IV .Q8H RENE Stop: 07/12/17 14:56 Last Admin: 07/12/17 05:56 Dose: 125 mls/hr Lisinopril (Zestril) 10 mg PO DAILY [facility] Nicotine (Nicoderm Cq) 1 patch TD DAILY [facility] Last Admin: 07/12/17 00:06 Dose: 1 patch Pantoprazole Sodium (Protonix Ec Tab) 40 mg PO DAILY RENE Paroxetine HCl (Paxil) 20 mg PO HS [facility] Last Admin: 07/12/17 00:02 Dose: 20 mg Trazodone HCl (Desyrel) 100 mg PO HS PRN PRN Reason: Insomnia - Labs Labs: 07/12/17 05:00 07/11/17 02:00 PT 11.6 Seconds (9.8-13.1) 07/12/17 05:00 INR 1.0 (0.9-1.2) 07/12/17 05:00 - Constitutional Appears: Non-toxic, No Acute Distress - ENT Exam ENT Exam: Mucous Membranes Moist - Respiratory Exam Respiratory Exam: absent: Accessory Muscle Use, Respiratory Distress - Cardiovascular Exam Cardiovascular Exam: REGULAR RHYTHM - GI/Abdominal Exam GI & Abdominal Exam: Soft, Tenderness (epigastric). absent: Distended, Firm, Guarding, Rigid Assessment and Plan - Assessment and Plan (Free Text) Assessment: 51F post lap faraz with continued epigastric pain Plan: for EUS possible ERCP today will f.u results d/w Dr Tan Alvarenga, PGY3
[2017-07-12] MEDS ORDERED: cefTRIAXone (Rocephin) 1 gm Inj IM SCH (09:00)
[2017-07-12] MEDS ORDERED: Patient's Own Med (Lisinopril/Hydrochlorothiazide [Lisinopril-Hctz 10-12.5 Mg Tab] 1 TAB) PO SCH (09:00)
[2017-07-12] MEDS ORDERED: Simethicone 80 mg Chewtab PO ONE (15:13)
[2017-07-12] MEDS: Pantoprazole 40 mg EC Tab PO SCH (17:16)
--- NOTE | 2017-07-12 17:55 | CP.PCM.HP ---
History of Present Illness - History of Present Illness History of Present Illness: CC: Abdominal pain. 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 Pt with Hx of Cholelithiasis s/p Cholecystectomy on 06/22/17 , Pt c/o of gradually increased abdominal pain from day of surgery, pain was constant, dull , of severe intensity 9:10 non radiated but associated to nausea, vomiting x2. Worsening symptoms: CT while in the ER showed: Small fluid collection in GB Fossa. Also Pt c/o of acid sensation coming up from stomach to chest. Aggravated factor: Unable to eat or take medications 2nd to clinical condition. Pt was seen in ER [facility] on 07/07/17, was found in CT Abd/Pel. to have fluid collection in the gallbladder fossa and was discharged with abx po. Abdominal US dilatation of CBD aprox 9.5 mm HIDA Scan shows: No evidence of bile leak, prompt visualization of the common duct and small bowel with radionuclide. EKG: Normal sinus rhythm. Patient had Surgical consultation and was transferred to [facility] and had ERCP with extraction of CBD stone , and there after was transferred to [facility] and Re AD to Med-Surg Present on Admission - Present on Admission Any Indicators Present on Admission: No Review of Systems - Constitutional Constitutional: Other (decreased appetite) - EENT Eyes: Other (negative) Ears: Other (negative) Nose/Mouth/Throat: Other (negative) - Cardiovascular Cardiovascular: Other (negative) - Respiratory Respiratory: Cough, Chest Congestion - Gastrointestinal Gastrointestinal: Abdominal Pain, Nausea, Vomiting - Genitourinary Genitourinary: Other (negative) - Musculoskeletal Musculoskeletal: Other (negative) - Integumentary Integumentary: Other (negative) - Neurological Neurological: Other (negative) - Psychiatric Psychiatric: Other (negative) - Endocrine Endocrine: Other (negative) - Hematologic/Lymphatic Hematologic: Other (negative) Past Patient History - Past Medical History & Family History Past Medical History?: Yes Pertinent Family History: Unknown - Past Social History Smoking Status: Heavy Smoker > 10 Cigarettes Daily Alcohol: None Drugs: Denies Home Situation {Lives}: With Family - CARDIAC Hx Hypertension: Yes - PULMONARY Hx Respiratory Disorders: No - NEUROLOGICAL Hx Neurological Disorder: No - HEENT Hx HEENT Problems: No - RENAL Hx Chronic Kidney Disease: No - ENDOCRINE/METABOLIC Hx Endocrine Disorders: No - HEMATOLOGICAL/ONCOLOGICAL Hx Blood Disorders: No Hx AIDS: No Hx Human Immunodeficiency Virus (HIV): No - INTEGUMENTARY Hx Dermatological Problems: No - MUSCULOSKELETAL/RHEUMATOLOGICAL Hx Musculoskeletal Disorders: No Hx Falls: No - GASTROINTESTINAL Hx Gastrointestinal Disorders: Yes Hx Gall Bladder Disease: Yes - GENITOURINARY/GYNECOLOGICAL Hx Genitourinary Disorders: Yes - PSYCHIATRIC Hx Psychophysiologic Disorder: Yes Hx Depression: Yes - SURGICAL HISTORY Hx Surgeries: Yes Hx Cholecystectomy: Yes - ANESTHESIA Hx Anesthesia: Yes Hx Anesthesia Reactions: No Meds Allergies/Adverse Reactions: Allergies Allergy/AdvReac Type Severity Reaction Status Date / Time No Known Allergies Allergy Verified 07/11/17 00:25 Physical Exam - Constitutional Appears: No Acute Distress - Head Exam Head Exam: NORMAL INSPECTION - Eye Exam Eye Exam: PERRL - ENT Exam ENT Exam: Normal Oropharynx - Neck Exam Neck exam: Positive for: Normal Inspection - Respiratory Exam Respiratory Exam: Decreased Breath Sounds (at bases), Rhonchi (scattered) - Cardiovascular Exam Cardiovascular Exam: REGULAR RHYTHM - GI/Abdominal Exam GI & Abdominal Exam: Normal Bowel Sounds, Soft - Extremities Exam Extremities exam: Positive for: normal inspection - Back Exam Back exam: NORMAL INSPECTION - Neurological Exam Neurological exam: Alert, Oriented x3 Additional comments: No motor sensory deficit. - Psychiatric Exam Psychiatric exam: Normal Mood - Skin Skin Exam: Warm Results - Vital Signs Recent Vital Signs: Last Vital Signs Temp 98.1 F 07/12/17 16:24 Pulse 74 07/12/17 16:24 Resp 20 07/12/17 16:24 BP 115/76 07/12/17 16:24 Pulse Ox 98 07/12/17 16:24 reviewed Lars - Labs Result Diagrams: 07/12/17 05:00 07/11/17 02:00 Labs: Laboratory Results - last 24 hr 07/12/17 07/12/17 05:00 05:00 WBC 5.7 RBC 4.41 Hgb 13.2 Hct 40.2 MCV 91.2 MCH 29.8 MCHC 32.7 L RDW 14.5 Plt Count 232 MPV 8.6 Neut % (Auto) 42.7 L Lymph % (Auto) 42.4 H [place] % (Auto) 12.4 H Eos % (Auto) 1.5 Baso % (Auto) 1.0 Neut # (Auto) 2.4 Lymph # (Auto) 2.4 [place] # (Auto) 0.7 Eos # (Auto) 0.1 Baso # (Auto) 0.1 PT 11.6 INR 1.0 reviewed J.P. - EKG Data EKG comments: reviewed J.P. - Impressions Impression: HIDA Scan Reviewed J.P. - Imaging and Cardiology US - abdomen Status: Report reviewed by me (Galbladder) CT scan - abdomen Status: Report reviewed by me (J.P.) CT scan - pelvis Status: Report reviewed by me (J.P.) Assessment & Plan (1) Abdominal pain Status: Acute Priority: High (2) S/P laparoscopic cholecystectomy Status: Acute Priority: High (3) HTN (hypertension) Status: Chronic Priority: Medium - Assessment and Plan (Free Text) Plan: Pt had ERCP done at [facility] today, Continue Rocephin IV, Dilaudid, Duoneb, Protonix and rest of Tx. - Date & Time Date: 07/12/17 Time: 17:30
[2017-07-12] MEDS: Albuterol-Ipratrop 3 mg / 0.5 (3 ml) UD INH SCH (18:04)
[2017-07-12] MEDS ORDERED: Dextrose 5%/0.9% NS 1,000 ML IV SCH (18:30)
[2017-07-13] MEDS: Albuterol-Ipratrop 3 mg / 0.5 (3 ml) UD INH SCH ×2 (01:12→19:49)
--- NOTE | 2017-07-13 05:35 | CP.PCM.PN ---
Subjective - Date & Time of Evaluation Date of Evaluation: 07/13/17 Time of Evaluation: 05:30 - Subjective Subjective: General Surgery- Dr. Maddox Patient seen and examined at bedside this AM. No acute events overnight. Tolerating CLD. having some gas pain. passing flatus. Pain is well controlled w / current pain regiment. +OOB and ambulating. denies n/v/d f/c cp/sob Objective - Vital Signs/Intake and Output Vital Signs (last 24 hours): Temp Pulse Resp BP Pulse Ox 97.7 F 85 20 117/73 96 07/12/17 23:49 07/12/17 23:49 07/12/17 23:49 07/12/17 23:49 07/12/17 23:49 - Medications Medications: Current Medications Albuterol/Ipratropium (Duoneb 3 Mg/0.5 Mg (3 Ml) Ud) 3 ml INH RQ6 [facility] Last Admin: 07/13/17 01:12 Dose: 3 ml Hydrochlorothiazide (Microzide) 12.5 mg PO DAILY [facility] Last Admin: 07/12/17 08:00 Dose: 12.5 mg Hydromorphone HCl (Dilaudid) 1 mg IVP Q4 PRN PRN Reason: Pain, moderate (4-7) Last Admin: 07/13/17 03:03 Dose: 1 mg Ceftriaxone Sodium 1 gm/ (Sodium Chloride) 100 mls @ 100 mls/hr IVPB DAILY [facility] PRN Reason: Protocol Last Admin: 07/12/17 17:30 Dose: 100 mls/hr Dextrose/Sodium Chloride (Dextrose 5%/0.9% Ns 1000 Ml) 1,000 mls @ 70 mls/hr IV .[id number] [facility] Stop: 07/13/17 18:19 Lisinopril (Zestril) 10 mg PO DAILY [facility] Last Admin: 07/12/17 08:00 Dose: Not Given Nicotine (Nicoderm Cq) 1 patch TD DAILY [facility] Last Admin: 07/12/17 17:14 Dose: 1 patch Pantoprazole Sodium (Protonix Ec Tab) 40 mg PO DAILY [facility] Last Admin: 07/12/17 17:16 Dose: 40 mg Paroxetine HCl (Paxil) 20 mg PO HS [facility] Last Admin: 07/12/17 21:31 Dose: 20 mg Trazodone HCl (Desyrel) 100 mg PO HS PRN PRN Reason: Insomnia - Labs Labs: 07/12/17 05:00 07/11/17 02:00 PT 11.6 Seconds (9.8-13.1) 07/12/17 05:00 INR 1.0 (0.9-1.2) 07/12/17 05:00 - Constitutional Appears: Non-toxic, No Acute Distress - Eye Exam Eye Exam: EOMI. absent: Scleral icterus - ENT Exam ENT Exam: Mucous Membranes Moist - Respiratory Exam Respiratory Exam: NORMAL BREATHING PATTERN. absent: Accessory Muscle Use, Respiratory Distress - Cardiovascular Exam Cardiovascular Exam: +S1, +S2. absent: Bradycardia, Tachycardia - GI/Abdominal Exam GI & Abdominal Exam: Guarding, Soft. absent: Distended, Firm, Rigid, Tenderness Additional comments: voluntary gaurding abdomen soft incision C/D/I R. Lateral incision erythema, no induration or fluctuance - Neurological Exam Neurological Exam: Alert, Awake, Oriented x3 - Psychiatric Exam Psychiatric exam: Normal Affect - Skin Skin Exam: Intact, Warm Assessment and Plan - Assessment and Plan (Free Text) Assessment: 51F hx of lap faraz; s/p ERCP w/ stone removal from CBD POD#1 Plan: - Advance diet as tolerated per GI recs - pain control and Anti-emetic PRN - encourage out of bed and ambulate - no acute surgical intervention at this time - will discuss w/ Dr. Maddox surgical attending Abdirahman Bailon PGY1
[2017-07-13 07:22] LABS: HEMOGLOBIN 11.9 g/dL (12.0-16.0); MEAN CELL VOLUME 90.6 fl (81.0-99.0); MEAN CORPUSCULAR HEMOGLOBIN 30.5 pg (27.0-31.0); MEAN CORPUSCULAR HGB CONC 33.7 g/dL (33.0-37.0); RBC 3.91 Mil/uL (3.80-5.20); RED CELL DISTRIBUTION WIDTH 14.8 % (11.5-14.5)
[2017-07-13 07:42] LABS: ALB/GLOB RATIO 1.1 (1.0-2.1); ALT/SGPT 97 U/L (9-52); AST/SGOT 85 U/L (14-36); BILIRUBIN,DIRECT 0.8 mg/ml (0.0-0.4); BLOOD UREA NITROGEN 4 mg/dl (7-17); CALCIUM 8.2 mg/dL (8.4-10.2); GFR AFRICAN-AMERICAN > 60; GFR NON-AFRICAN AMERICAN > 60
[2017-07-13] MEDS: Simethicone 80 mg Chewtab PO PRN ×2 (07:51→14:55)
[2017-07-13] MEDS: Sodium Chloride 0.9% 1,000 ML IV SCH ×3 (07:52→23:30)
[2017-07-13] MEDS: Pantoprazole 40 mg EC Tab PO SCH (09:28)
--- NOTE | 2017-07-13 09:59 | RAD ---
PROCEDURE: CHEST RADIOGRAPH, 1 VIEW HISTORY: s/p ERCP COMPARISON: 10/10/2016 FINDINGS: LUNGS: Clear. PLEURA: No pneumothorax or pleural fluid seen. CARDIOVASCULAR: Normal. OSSEOUS STRUCTURES: No significant abnormalities. VISUALIZED UPPER ABDOMEN: Normal. OTHER FINDINGS: None. IMPRESSION: No active disease.
--- NOTE | 2017-07-13 14:25 | CP.PCM.PN ---
Subjective - Date & Time of Evaluation Date of Evaluation: 07/13/17 Time of Evaluation: 14:23 - Subjective Subjective: RFV: Choledocholithiasis S: No acute events. C/o mild gas, improving. No abdominal pain, bleeding ,or fever. Tolerating diet. Objective - Vital Signs/Intake and Output Vital Signs (last 24 hours): Temp Pulse Resp BP Pulse Ox 98.3 F 72 20 112/71 99 07/13/17 08:21 07/13/17 08:21 07/13/17 08:21 07/13/17 08:21 07/13/17 08:21 - Medications Medications: Current Medications Albuterol/Ipratropium (Duoneb 3 Mg/0.5 Mg (3 Ml) Ud) 3 ml INH RQ6 [facility] Last Admin: 07/13/17 01:12 Dose: 3 ml Hydrochlorothiazide (Microzide) 12.5 mg PO DAILY [facility] Last Admin: 07/13/17 09:28 Dose: 12.5 mg Hydromorphone HCl (Dilaudid) 1 mg IVP Q4 PRN PRN Reason: Pain, moderate (4-7) Last Admin: 07/13/17 12:40 Dose: 1 mg Hydromorphone HCl (Dilaudid) 2 mg IVP Q4 PRN PRN Reason: Pain, severe (8-10) Last Admin: 07/13/17 13:47 Dose: 2 mg Ceftriaxone Sodium 1 gm/ (Sodium Chloride) 100 mls @ 100 mls/hr IVPB DAILY [facility] PRN Reason: Protocol Last Admin: 07/13/17 09:27 Dose: 100 mls/hr Dextrose/Sodium Chloride (Dextrose 5%/0.9% Ns 1000 Ml) 1,000 mls @ 70 mls/hr IV .[id number] [facility] Stop: 07/13/17 18:19 Last Admin: 07/13/17 09:06 Dose: Not Given Sodium Chloride (Sodium Chloride 0.9%) 1,000 mls @ 125 mls/hr IV .Q8H [facility] Stop: 07/14/17 07:03 Last Admin: 07/13/17 07:52 Dose: 125 mls/hr Potassium Chloride 20 meq/ (Sodium Chloride) 1,010 mls @ 80 mls/hr IV .[id number] [facility] Stop: 07/14/17 02:07 Lisinopril (Zestril) 10 mg PO DAILY [facility] Last Admin: 07/13/17 09:27 Dose: 10 mg Nicotine (Nicoderm Cq) 1 patch TD DAILY [facility] Last Admin: 07/13/17 09:28 Dose: 1 patch Pantoprazole Sodium (Protonix Ec Tab) 40 mg PO DAILY [facility] Last Admin: 07/13/17 09:28 Dose: 40 mg Paroxetine HCl (Paxil) 20 mg PO HS [facility] Last Admin: 07/12/17 21:31 Dose: 20 mg Simethicone (Mylicon Chew Tab) 80 mg PO [facility] PRN PRN Reason: Flatulence Last Admin: 07/13/17 07:51 Dose: 80 mg Trazodone HCl (Desyrel) 100 mg PO PRN PRN Reason: Insomnia - Labs Labs: 07/13/17 05:30 07/13/17 05:30 PT 11.6 Seconds (9.8-13.1) 07/12/17 05:00 INR 1.0 (0.9-1.2) 07/12/17 05:00 - Constitutional Appears: No Acute Distress - Head Exam Head Exam: ATRAUMATIC, NORMOCEPHALIC - Eye Exam Eye Exam: absent: Scleral icterus - ENT Exam ENT Exam: Mucous Membranes Moist - Respiratory Exam Respiratory Exam: NORMAL BREATHING PATTERN - Cardiovascular Exam Cardiovascular Exam: +S1, +S2 - GI/Abdominal Exam GI & Abdominal Exam: Soft. absent: Tenderness - Neurological Exam Neurological Exam: Alert, Oriented x3 Assessment and Plan - Assessment and Plan (Free Text) Assessment: 51 year old female with h/o cholelithiasis s/p cholecystectomy admitted with abdominal pain and elevated lfts found to have choledocholithiasis s/p ERCP with sphincterotomy and stone extraction. 1. Choledocholithiasis Plan: -s/p ERCP with stone extraction -lfts improved -diet as tolerated -ok for discharge from GI standpoint -will sign off -may give prophylactic abx for 5-7 days -no evidence of bile leak on HIDA or ERCP
--- NOTE | 2017-07-13 15:40 | CP.PCM.PN ---
Subjective - Date & Time of Evaluation Date of Evaluation: 07/13/17 Time of Evaluation: 11:40 - Subjective Subjective: F/U Abdominal pain. Objective - Vital Signs/Intake and Output Vital Signs (last 24 hours): Temp Pulse Resp BP Pulse Ox 98.3 F 72 20 112/71 99 07/13/17 08:21 07/13/17 08:21 07/13/17 08:21 07/13/17 08:21 07/13/17 08:21 - Medications Medications: Current Medications Albuterol/Ipratropium (Duoneb 3 Mg/0.5 Mg (3 Ml) Ud) 3 ml INH RQ6 [facility] Last Admin: 07/13/17 01:12 Dose: 3 ml Hydrochlorothiazide (Microzide) 12.5 mg PO DAILY [facility] Last Admin: 07/13/17 09:28 Dose: 12.5 mg Hydromorphone HCl (Dilaudid) 1 mg IVP Q4 PRN PRN Reason: Pain, moderate (4-7) Last Admin: 07/13/17 12:40 Dose: 1 mg Hydromorphone HCl (Dilaudid) 2 mg IVP Q4 PRN PRN Reason: Pain, severe (8-10) Last Admin: 07/13/17 13:47 Dose: 2 mg Ceftriaxone Sodium 1 gm/ (Sodium Chloride) 100 mls @ 100 mls/hr IVPB DAILY [facility] PRN Reason: Protocol Last Admin: 07/13/17 09:27 Dose: 100 mls/hr Dextrose/Sodium Chloride (Dextrose 5%/0.9% Ns 1000 Ml) 1,000 mls @ 70 mls/hr IV .[id number] [facility] Stop: 07/13/17 18:19 Last Admin: 07/13/17 09:06 Dose: Not Given Sodium Chloride (Sodium Chloride 0.9%) 1,000 mls @ 125 mls/hr IV .Q8H [facility] Stop: 07/14/17 07:03 Last Admin: 07/13/17 07:52 Dose: 125 mls/hr Potassium Chloride 20 meq/ (Sodium Chloride) 1,010 mls @ 80 mls/hr IV .[id number] [facility] Stop: 07/14/17 02:07 Lisinopril (Zestril) 10 mg PO DAILY [facility] Last Admin: 07/13/17 09:27 Dose: 10 mg Nicotine (Nicoderm Cq) 1 patch TD DAILY [facility] Last Admin: 07/13/17 09:28 Dose: 1 patch Pantoprazole Sodium (Protonix Ec Tab) 40 mg PO DAILY [facility] Last Admin: 07/13/17 09:28 Dose: 40 mg Paroxetine HCl (Paxil) 20 mg PO HS [facility] Last Admin: 07/12/17 21:31 Dose: 20 mg Simethicone (Mylicon Chew Tab) [address] [facility] PRN PRN Reason: Flatulence Last Admin: 07/13/17 14:55 Dose: 80 mg Trazodone HCl (Desyrel) 100 mg PO HS PRN PRN Reason: Insomnia - Labs Labs: 07/13/17 05:30 07/13/17 05:30 PT 11.6 Seconds (9.8-13.1) 07/12/17 05:00 INR 1.0 (0.9-1.2) 07/12/17 05:00 - Constitutional Appears: No Acute Distress - Head Exam Head Exam: NORMAL INSPECTION - Eye Exam Eye Exam: PERRL - ENT Exam ENT Exam: Normal Exam - Neck Exam Neck Exam: Normal Inspection - Respiratory Exam Respiratory Exam: Decreased Breath Sounds (at bases), Rhonchi (scattered) - Cardiovascular Exam Cardiovascular Exam: REGULAR RHYTHM - GI/Abdominal Exam GI & Abdominal Exam: Soft, Normal Bowel Sounds - Extremities Exam Extremities Exam: Normal Inspection - Back Exam Back Exam: NORMAL INSPECTION - Neurological Exam Neurological Exam: Alert, Oriented x3. absent: Motor Sensory Deficit - Psychiatric Exam Psychiatric exam: Normal Mood - Skin Skin Exam: Warm Assessment and Plan (1) Abdominal pain Status: Acute (2) S/P laparoscopic cholecystectomy Status: Acute (3) S/P ERCP Status: Acute (4) HTN (hypertension) Status: Chronic (5) Bronchospasm Status: Acute
[2017-07-13] MEDS ORDERED: Potassium Chl 20 mEq in NS 1,000 ML IV SCH (16:00)
--- NOTE | 2017-07-13 17:03 | CP.PCM.PCO ---
Physician Communication Note - Physician Communication Note Physician Communication Note: encourage pt to ambulate to reduce bloating sensation
[2017-07-14] MEDS: Albuterol-Ipratrop 3 mg / 0.5 (3 ml) UD INH SCH ×2 (01:00→09:27)
[2017-07-14] MEDS: Simethicone 80 mg Chewtab PO PRN (01:46)
[2017-07-14 07:21] LABS: BASO % 0.4 % (0.0-2.0); EOS # 0.1 K/uL (0.0-0.7); EOS % 1.2 % (0.0-4.0); HEMOGLOBIN 12.3 g/dL (12.0-16.0); LYMPH # 3.1 K/uL (1.0-4.3); LYMPH % 37.6 % (20.0-40.0); MEAN CELL VOLUME 92.4 fl (81.0-99.0); MEAN CORPUSCULAR HEMOGLOBIN 29.8 pg (27.0-31.0); MEAN CORPUSCULAR HGB CONC 32.3 g/dL (33.0-37.0); MEAN PLATELET VOLUME 9.2 fl (7.2-11.7); MONO # 0.7 K/uL (0.0-0.8); MONO % 8.6 % (0.0-10.0); NEUT # 4.3 K/uL (1.8-7.0); NEUT % 52.2 % (50.0-75.0); NRBC % 0.1 % (0.0-0.0); RBC 4.12 Mil/uL (3.80-5.20); RED CELL DISTRIBUTION WIDTH 15.2 % (11.5-14.5); WHITE BLOOD COUNT 8.2 K/uL (4.8-10.8)
[2017-07-14 07:44] LABS: ALB/GLOB RATIO 1.1 (1.0-2.1); ALBUMIN 3.5 g/dL (3.5-5.0); ALT/SGPT 116 U/L (9-52); AST/SGOT 127 U/L (14-36); BLOOD UREA NITROGEN 2 mg/dl (7-17); CALCIUM 8.5 mg/dL (8.4-10.2); GFR AFRICAN-AMERICAN > 60; GFR NON-AFRICAN AMERICAN > 60
[2017-07-14] MEDS: Iohexol 240 (50 ml) PO ONE ×2 (08:03)
[2017-07-14 08:06] VITALS: BP 109/71; PULSE 66; RESP 20; TEMP 97.9; O2SAT 97
--- NOTE | 2017-07-14 10:50 | RAD ---
HISTORY: abdominal pain COMPARISON: No prior. FINDINGS: BOWEL: Contrast noted within bowel loops. . No obstruction. No free air. BONES: Normal. OTHER FINDINGS: None. IMPRESSION: No active disease.
[2017-07-14] MEDS ORDERED: Iohexol 300 100 ML IJ ONE (10:58)
[2017-07-14] MEDS ORDERED: Sodium Chloride 0.9% 50 ML IV ONE (10:58)
--- NOTE | 2017-07-14 10:58 | CP.PCM.PN ---
Subjective - Date & Time of Evaluation Date of Evaluation: 07/14/17 Time of Evaluation: 09:20 - Subjective Subjective: General Surgery Dr. Maddox Pt S&E @bedside. NAEO. pt reports improved bloating and abd pain. Pt denies F/C , N/V, D/C. (+)flatus Objective - Vital Signs/Intake and Output Vital Signs (last 24 hours): Temp Pulse Resp BP Pulse Ox 97.9 F 66 20 109/71 97 07/14/17 08:05 07/14/17 08:05 07/14/17 08:05 07/14/17 08:05 07/14/17 08:05 - Medications Medications: Current Medications Albuterol/Ipratropium (Duoneb 3 Mg/0.5 Mg (3 Ml) Ud) 3 ml INH RQ6 [facility] Last Admin: 07/14/17 09:27 Dose: 3 ml Alprazolam (Xanax) 0.5 mg PO BID [facility] Last Admin: 07/13/17 20:29 Dose: 0.5 mg Hydrochlorothiazide (Microzide) 12.5 mg PO DAILY [facility] Last Admin: 07/14/17 09:36 Dose: Not Given Hydromorphone HCl (Dilaudid) 1 mg IVP Q4 PRN PRN Reason: Pain, moderate (4-7) Last Admin: 07/13/17 12:40 Dose: 1 mg Hydromorphone HCl (Dilaudid) 2 mg IVP Q4 PRN PRN Reason: Pain, severe (8-10) Last Admin: 07/14/17 09:36 Dose: 2 mg Ceftriaxone Sodium 1 gm/ (Sodium Chloride) 100 mls @ 100 mls/hr IVPB DAILY [facility] PRN Reason: Protocol Last Admin: 07/13/17 09:27 Dose: 100 mls/hr Lisinopril (Zestril) 10 mg PO DAILY [facility] Last Admin: 07/13/17 09:27 Dose: 10 mg Nicotine (Nicoderm Cq) 1 patch TD DAILY [facility] Last Admin: 07/13/17 09:28 Dose: 1 patch Pantoprazole Sodium (Protonix Ec Tab) 40 mg PO DAILY [facility] Last Admin: 07/13/17 09:28 Dose: 40 mg Paroxetine HCl (Paxil) 20 mg PO HS [facility] Last Admin: 07/13/17 22:03 Dose: 20 mg Simethicone (Mylicon Chew Tab) 80 mg PO [facility] PRN PRN Reason: Flatulence Last Admin: 07/14/17 01:46 Dose: 80 mg Trazodone HCl (Desyrel) 100 mg PO HS PRN PRN Reason: Insomnia - Labs Labs: 07/14/17 05:30 07/14/17 05:30 PT 11.6 Seconds (9.8-13.1) 07/12/17 05:00 INR 1.0 (0.9-1.2) 07/12/17 05:00 - Constitutional Appears: Non-toxic, No Acute Distress - Head Exam Head Exam: NORMAL INSPECTION - Eye Exam Eye Exam: Normal appearance - ENT Exam ENT Exam: Mucous Membranes Moist - Respiratory Exam Respiratory Exam: NORMAL BREATHING PATTERN. absent: Accessory Muscle Use, Respiratory Distress - GI/Abdominal Exam GI & Abdominal Exam: Soft. absent: Distended, Tenderness - Extremities Exam Extremities Exam: Normal Inspection - Neurological Exam Neurological Exam: Alert, Awake, Oriented x3 - Psychiatric Exam Psychiatric exam: Normal Affect, Normal Mood - Skin Skin Exam: Dry, Intact, Normal Color, Warm Assessment and Plan - Assessment and Plan (Free Text) Assessment: 51 y/o F w/ abd pain s/p lap faraz, found to have choledocolithaisis - cont pain management - encourage OOB to chair/Amb - cont medical management - pt cleared from surgical standpoint - pt should folow up w/ original surgeon Pt discussed w/ Dr. Tan Cameron DO PGY2
--- NOTE | 2017-07-14 11:50 | CT ---
PROCEDURE: CT Abdomen and Pelvis with contrast HISTORY: abdominal pain COMPARISON: None. TECHNIQUE: Contrast dose: Radiation dose: Total exam DLP = mGy-cm. This CT exam was performed using one or more of the following dose reduction techniques: Automated exposure control, adjustment of the mA and/or kV according to patient size, and/or use of iterative reconstruction technique. FINDINGS: LOWER THORAX: Unremarkable. LIVER: Unremarkable. No gross lesion or ductal dilatation. GALLBLADDER AND BILE DUCTS: Status post cholecystectomy. PANCREAS: Unremarkable. No gross lesion or ductal dilatation. SPLEEN: Unremarkable. ADRENALS: Unremarkable. No mass. KIDNEYS AND URETERS: Unremarkable. No hydronephrosis. No solid mass. VASCULATURE: Unremarkable. No aortic aneurysm. BOWEL: Unremarkable. No obstruction. No gross mural thickening. APPENDIX: Normal appendix. PERITONEUM: Unremarkable. No free fluid. No free air. LYMPH NODES: Unremarkable. No enlarged lymph nodes. BLADDER: Unremarkable. REPRODUCTIVE: Unremarkable. BONES: No acute fracture. OTHER FINDINGS: None. IMPRESSION: Unremarkable contrast enhanced CT of the abdomen and pelvis.
[2017-07-14] MEDS: Pantoprazole 40 mg EC Tab PO SCH (12:34)
--- NOTE | 2017-07-14 17:48 | CP.PCM.DIS ---
Provider - Provider Date of Admission: 07/12/17 12:13 Attending physician: Killian Briggs MD Primary care physician: aJya Prakash MD Consults: General Surgery. Time Spent in preparation of Discharge (in minutes): 35 Diagnosis - Discharge Diagnosis (1) Abdominal pain Status: Acute Priority: High (2) S/P laparoscopic cholecystectomy Status: Acute Priority: High (3) S/P ERCP Status: Acute (4) HTN (hypertension) Status: Chronic Priority: Medium (5) Bronchospasm Status: Acute Hospital Course - Lab Results Lab Results: Most Recent Lab Values WBC 8.2 K/uL (4.8-10.8) 07/14/17 05:30 RBC 4.12 Mil/uL (3.80-5.20) 07/14/17 05:30 Hgb 12.3 g/dL (12.0-16.0) 07/14/17 05:30 Hct 38.1 % (34.0-47.0) 07/14/17 05:30 MCV 92.4 fl (81.0-99.0) 07/14/17 05:30 MCH 29.8 pg (27.0-31.0) 07/14/17 05:30 MCHC 32.3 g/dL (33.0-37.0) L 07/14/17 05:30 RDW 15.2 % (11.5-14.5) H 07/14/17 05:30 Plt Count 227 K/uL (130-400) 07/14/17 05:30 MPV 9.2 fl (7.2-11.7) 07/14/17 05:30 Neut % (Auto) 52.2 % (50.0-75.0) 07/14/17 05:30 Lymph % (Auto) 37.6 % (20.0-40.0) 07/14/17 05:30 [place] % (Auto) 8.6 % (0.0-10.0) 07/14/17 05:30 Eos % (Auto) 1.2 % (0.0-4.0) 07/14/17 05:30 Baso % (Auto) 0.4 % (0.0-2.0) 07/14/17 05:30 Neut # (Auto) 4.3 K/uL (1.8-7.0) 07/14/17 05:30 Lymph # (Auto) 3.1 K/uL (1.0-4.3) 07/14/17 05:30 [place] # (Auto) 0.7 K/uL (0.0-0.8) 07/14/17 05:30 Eos # (Auto) 0.1 K/uL (0.0-0.7) 07/14/17 05:30 Baso # (Auto) 0.0 K/uL (0.0-0.2) 07/14/17 05:30 PT 11.6 Seconds (9.8-13.1) 07/12/17 05:00 INR 1.0 (0.9-1.2) 07/12/17 05:00 Sodium 143 mmol/l (132-148) 07/14/17 05:30 Potassium 3.9 MMOL/L (3.6-5.0) 07/14/17 05:30 Chloride 102 mmol/L (98-107) 07/14/17 05:30 Carbon Dioxide 29 mmol/L (22-30) 07/14/17 05:30 Anion Gap 16 (10-20) 07/14/17 05:30 BUN 2 mg/dl (7-17) L 07/14/17 05:30 Creatinine 0.5 mg/dl (0.7-1.2) L 07/14/17 05:30 Est GFR ( Amer) > 60 07/14/17 05:30 Est GFR (Non-Af Amer) > 60 07/14/17 05:30 Random Glucose 86 mg/dL (65-105) 07/14/17 05:30 Calcium 8.5 mg/dL (8.4-10.2) 07/14/17 05:30 Total Bilirubin 0.9 mg/dl (0.2-1.3) 07/14/17 05:30 Direct Bilirubin 0.8 mg/ml (0.0-0.4) H 07/13/17 05:30 AST 127 U/L (14-36) H D 07/14/17 05:30 ALT 116 U/L (9-52) H 07/14/17 05:30 Alkaline Phosphatase 141 U/L (38-126) H 07/14/17 05:30 Total Protein 6.6 G/DL (6.3-8.2) 07/14/17 05:30 Albumin 3.5 g/dL (3.5-5.0) 07/14/17 05:30 Globulin 3.1 gm/dL (2.2-3.9) 07/14/17 05:30 Albumin/Globulin Ratio 1.1 (1.0-2.1) 07/14/17 05:30 Lipase 42 U/L (23-300) 07/11/17 02:00 Urine Color Dark brown (YELLOW) 07/11/17 04:28 Urine Clarity Turbid (Clear) 07/11/17 04:28 Urine pH 5.5 (5.0-8.0) 07/11/17 04:28 Ur Specific [place] >= 1.030 (1.003-1.030) 07/11/17 04:28 Urine Protein 100 mg/dL (NEGATIVE) 07/11/17 04:28 Urine Glucose (UA) 250 mg/dL (Normal) 07/11/17 04:28 Urine Ketones 40 mg/dL (NEGATIVE) 07/11/17 04:28 Urine Blood Negative (NEGATIVE) 07/11/17 04:28 Urine Nitrate Positive (NEGATIVE) H 07/11/17 04:28 Urine Bilirubin Large (NEGATIVE) 07/11/17 04:28 Urine Urobilinogen 1.0 mg/dL (0.2-1.0) 07/11/17 04:28 Ur Leukocyte Esterase Negative [place]/uL (Negative) 07/11/17 04:28 Urine RBC (Auto) 3 /hpf (0-3) 07/11/17 04:28 Urine Microscopic WBC 10 /hpf (0-5) H 07/11/17 04:28 Urine Bacteria Mod (<OCC) H 07/11/17 04:28 Hyaline Casts 0 - 2 /hpf (0-2) 07/11/17 04:28 - Date & Time of H&P Date of H&P: 07/12/17 Time of H&P: 17:30 Discharge Exam - Head Exam Head Exam: NORMAL INSPECTION - Eye Exam Eye Exam: PERRL - ENT Exam ENT Exam: Normal Exam - Neck Exam Neck exam: Normal Inspection - Respiratory Exam Respiratory Exam: Decreased Breath Sounds (at bases), Rhonchi (scattered) - Cardiovascular Exam Cardiovascular Exam: REGULAR RHYTHM - GI/Abdominal Exam GI & Abdominal Exam: Normal Bowel Sounds, Soft - Extremities Exam Extremities exam: normal inspection - Back Exam Back exam: NORMAL INSPECTION - Neurological Exam Neurological exam: Alert, Oriented x3 Additional comments: No motor sensory deficit. - Psychiatric Exam Psychiatric exam: Normal Mood - Skin Skin Exam: Warm Discharge Plan - Follow Up Plan Condition: STABLE Disposition: HOME/ ROUTINE Patient education suggested?: Yes Instructions: Endoscopic Retrograde Cholangiopancreatography (DC) Additional Instructions: f/u PMD within 1 week. Referrals: Jaya Prakash MD [Primary Care Provider] -
--- NOTE | 2017-07-15 09:17 | CARD ---
APPROVED REPORT EKG Measurement Heart [id number] <Conclusion> Normal sinus rhythm Low voltage QRS Borderline ECG
== END 2017-07-14 16:04 | disposition home or self-care (01) | DRG 445 ==
LOC: H.ER 00:24 → H.ERHOLD 15:11 → H.MEDSURG1 17:58 → OBSVTOIN 07-12 12:13
PROVIDERS: ADMIT Internal Medicine Pulmonary Disease; ATTEND Internal Medicine Pulmonary Disease
PROC: 3E0234Z Introduction of Serum, Toxoid and Vaccine into Muscle, Percutaneous Approach (ICD-10-PCS; principal; 2017-07-12)
PROC: 0F798ZZ Dilation of Common Bile Duct, Via Natural or Artificial Opening Endoscopic (ICD-10-PCS; 2017-07-12)
DX: K80.50 Calculus of bile duct without cholangitis or cholecystitis without obstruction (principal); N39.0 Urinary tract infection, site not specified; F17.200 Nicotine dependence, unspecified, uncomplicated; K80.20 Calculus of gallbladder without cholecystitis without obstruction; F32.9 Major depressive disorder, single episode, unspecified; Z90.49 Acquired absence of other specified parts of digestive tract; F45.9 Somatoform disorder, unspecified; R10.13 Epigastric pain; R14.0 Abdominal distension (gaseous); R79.89 Other specified abnormal findings of blood chemistry; I10 Essential (primary) hypertension; J98.01 Acute bronchospasm; Z23 Encounter for immunization